=== PATIENT | male | born 1960 | race Caucasian/White ===

== ENCOUNTER 2020-03-28 19:11 | Outpatient (REF) | payer OTHER, SELFPAY ==
[2020-03-31 16:11] LABS: Patient Race White; SARS-CoV-2 RNA Undetected (Undetected); SARS-CoV-2 Specimen Source Nasal
== END 2020-03-28 19:31 ==
LOC: NCHCN 19:11
PROVIDERS: PCP Internal Medicine; Visit Provider Nurse Practitioner Family
DX: Z20.828 Contact with and (suspected) exposure to other viral communicable diseases (principal)
CPT/HCPCS: U0003

== ENCOUNTER 2021-11-18 07:23 | Outpatient (CLI) | payer OTHER, SELFPAY ==
--- OUTSIDE RECORDS SUMMARY | 2021-11-18 07:26 | XMS_ITS ---
:1960 Author Care Team Providers Name Role Phone DR. MARTINA GARCIA Primary Care Provider [phone] DR. MARTINA GARCIA Referring Provider [phone] Allergies Code Code System Name Reaction Severity Status Onset NKDA ? Medications No Medications Reported Notes: pt states he takes NO meds Problems Name Status Onset Date Source ? Tubular Adenoma of Colon Active ? ? Alcohol Dependence Active ? ? Obstructive Sleep Apnea Syndrome Active ? ? Dyspnea Active ? ? Procedures Date Name Performed by ? 06/27/1986 Cholecystectomy Information not avai lable Results Lab Results None recorded. Past Encounters None recorded. Social History Tobacco Smoking Status Never Smoker Vaccine List None recorded. Plan of Care Reminders Provider Appointments None recorded. ? ? Lab None recorded. ? ? Referral None recorded. ? ? Procedures None recorded. ? ? Surgeries None recorded. ? ? Imaging None recorded. ? ? Vitals Height Weight BMI Blood Pressure 185.42 cm 123.38 kg 35.9 kg/m2 124/62 mm[Hg]
== END 2021-11-18 07:24 | disposition home or self-care (01) ==
LOC: RT 07:24
PROVIDERS: PCP Internal Medicine; Visit Provider Nurse Practitioner
DX: G47.33 Obstructive sleep apnea (adult) (pediatric) (principal)
CPT/HCPCS: 94762